=== PATIENT | female | born 1995 | race Caucasian/White ===

== ENCOUNTER 2018-10-14 21:59 | Emergency (ER) | payer SELFPAY ==
[~2018-10-14] VITALS: Wt 89.5 kg
[2018-10-14 22:12] VITALS: BP 138/87; PULSE 80; RESP 18
[2018-10-15] MEDS ORDERED: MED4DP PO (00:08)
[2018-10-15] MEDS ORDERED: AZIT250T PO (00:08)
[2018-10-15] MEDS ORDERED: BENZ200C68 PO (00:08)
[2018-10-15] MEDS ORDERED: ALBU18HF INHALATION (00:08)
--- NOTE | 2018-10-15 01:11 | ERD ---
ER Documentation Chief Complaint Chief Complaint COUGH, SOB X'S 2 WEEKS HPI 23-year-old female with past medical history of asthma presenting to the emergency department complaining of productive cough intermittent for the past 2 weeks. Symptoms are worse during the day. Patient does report sick contacts with similar symptoms. Symptoms moderate in severity. Patient denies any fevers, chills, nausea, vomiting, or other symptoms at this time. ROS All systems reviewed and are negative except as per history of present illness. Medications Home Meds Active Scripts Methylprednisolone* (Medrol* DOSE PACK) 4 Mg/Dose-Pack Tab.ds.pk, 4 MG PO . DIRECTED, #1 PACKET Prov:BALDO MELGAR PA-C 10/15/18 Albuterol Sulfate* (Ventolin HFA*) 18 Gm Hfa.aer.ad, 2 PUFF INHALATION Q4H, #1 INHALER Prov:BALDO MELGAR PA-C 10/15/18 Benzonatate* (Benzonatate*) 200 Mg Capsule, 200 MG PO TID PRN for COUGH, #15 CAP Prov:BALDO MELGAR PA-C 10/15/18 Azithromycin* (Zithromax*) 250 Mg Tablet, 250 MG PO .ZPACK DIRECTED, #6 TAB TAKE 500 MG (2 TABS) THE FIRST DAY THEN 250 MG (1 TAB) DAYS 2-5 Prov:BALDO MELGAR PA-C 10/15/18 Allergies Allergies: Coded Allergies: No Known Allergy (Unverified , 10/14/18) PMhx/Soc Medical and Surgical Hx: pt denies Medical Hx, pt denies Surgical Hx Hx Alcohol Use: No Hx Substance Use: No Hx Tobacco Use: No Smoking Status: Never smoker FmHx Family History: No diabetes Physical Exam Vitals Physical Exam Const: No acute distress Head: Atraumatic Eyes: Normal Conjunctiva ENT: Normal External Ears, Nose and Mouth. Neck: Full range of motion. No meningismus. Resp: Clear to auscultation bilaterally Cardio: Regular rate and rhythm, no murmurs Abd: Soft, non tender, non distended. Normal bowel sounds Skin: No petechiae or rashes Back: No midline or flank tenderness Ext: No cyanosis, or edema Neur: Awake and alert Psych: Normal Mood and Affect Procedures/MDM 23-year-old female presenting to the emergency department with signs and symptoms most consistent with acute bronchitis with possible bacterial etiology. The patient will be treated as an outpatient with prescriptions for azithromycin, Medrol Dosepak, albuterol, benzonatate. No evidence to suggest sepsis, meningitis, pneumonia, or other emergencies. No evidence of life- threatening pathology at time of discharge. Pt/family in agreement with discharge plan/diagnosis. Pt/family advised to return immediately with any new or worsening symptoms. Follow-up with primary care physician within the next 1- 2 days. Departure Diagnosis: Primary Impression: Acute bronchitis Condition: Fair Patient Instructions: Bronchitis, Antiobiotic Treatment (Adult) Referrals: [facility] YOU HAVE RECEIVED A MEDICAL SCREENING EXAM AND THE RESULTS INDICATE THAT YOU DO NOT HAVE A CONDITION THAT REQUIRES URGENT TREATMENT IN THE EMERGENCY DEPARTMENT. FURTHER EVALUATION AND TREATMENT OF YOUR CONDITION CAN WAIT UNTIL YOU ARE SEEN IN YOUR DOCTORS OFFICE WITHIN THE NEXT 1-2 DAYS. IT IS YOUR RESPONSIBILITY TO MAKE AN APPOINTMENT FOR FOLOW-UP CARE. IF YOU HAVE A PRIMARY DOCTOR --you should call your primary doctor and schedule an appointment IF YOU DO NOT HAVE A PRIMARY DOCTOR YOU CAN CALL OUR PHYSICIAN REFERRAL HOTLINE AT IF YOU CAN NOT AFFORD TO SEE A PHYSICIAN YOU CAN CHOSE FROM THE FOLLOWING [facility] [address] [facility]. [facility] [address] [facility]. [facility] [address] [facility] [facility] [address] [facility]. [facility] [address] [facility]. [facility]. [address] Additional Instructions: Call your primary care doctor TOMORROW for an appointment during the next 1-2 days.See the doctor sooner or return here if your condition worsens before your appointment time. BALDO MELGAR PA-C Oct 15, 2018 01:11
== END 2018-10-15 00:53 | disposition home or self-care (01) ==
LOC: FTE 21:59
DX: J20.9 Acute bronchitis, unspecified (principal)
CPT/HCPCS: 99283